=== PATIENT | female | born 1940 | race Caucasian/White ===

== ENCOUNTER 2020-02-21 21:41 | Emergency (ER) | payer MEDICARE, MEDICAID, SELFPAY ==
--- NOTE | 2020-02-21 21:57 | XR_ITS ---
WS: [id number] PORTABLE CHEST HISTORY: cp COMPARISON: 04/10/2016 LEFT subclavian dual lead cardiac pacer. Lungs are clear and well expanded. No pleural effusion or pneumothorax. Cardiac size: Mildly enlarged cardiac silhouette. Mediastinum/Aorta: Mild atherosclerosis aorta. Prior reverse RIGHT shoulder prosthesis. XR/XR chest 1V portable [id number] IMPRESSION: Mild cardiomegaly and calcified aorta. No acute cardiopulmonary disease.
--- NOTE | 2020-02-21 21:57 | ECG_ITS ---
[facility] ED Test Date: 2020-02-21 Pat Name: Margie Romano Department: Room: Gender: Female Gymnastics Coach: : 1940 Requested By: Kun Woodruff Order Number: [id number] Oriana MD: Marcelo Frank M.D. Measurements Intervals Van Rate: 82 P: W[place]: -1 QRS: 156 QRSD: 136 T: 10 QT: 429 QTc: 502 Interpretive Statements ELECTRONIC VENTRICULAR PACEMAKER ABNORMAL RHYTHM ECG Compared to ECG 04/10/2016 13:48:24 No significant changes Electronically Signed On 02-22-2020 7:25:53 CDT by Marcelo Frank M.D. [id number]
--- NOTE | 2020-02-21 22:20 | ED_ITS ---
HPI - Chest Pain General: Chief Complaint: Chest Pain Stated Complaint: CP Time Seen by Provider: 02/21/20 22:13 Source: patient Mode of arrival: ambulatory Limitations: no limitations History of Present Illness: HPI narrative: 79-year-old female who has a history of congestive heart failure states she has been having chest pain and shortness of breath over the last 2 days. States she had increased edema in her lower extremities as well. States the chest pain was mainly today and has been a burning pain in the center of her chest. She denies any worsening improving factors. Denies any fever. She denies any cough. MD complaint: chest pain Associated symptoms: Reports dyspnea; Deny abdominal pain, fever(s), nausea or vomiting Review of Systems Const: Denies: fever(s), chills, body aches or change in appetite Eyes: Denies: blurry vision or eye discomfort ENMT: Denies: throat pain or dental pain Card: Reports: chest pain Resp: Reports: dyspnea GI: Denies: abdominal pain, nausea, vomiting or diarrhea : Denies: dysuria Musc: Denies: neck pain or back pain Skin/Breast: Denies: rash Neuro: Denies: headache(s) Psych: Denies: depression Mainor/Lymph: Denies: easy bruising All/Imm: Denies: urticaria Physical Exam Const: COMMON NORMALS: no acute distress, patient oriented x3 and healthy appearing HENMT: COMMON NORMALS: normocephalic and atraumatic HEAD & SCALP: normocephalic and atraumatic Eye: COMMON NORMALS: Equal, round and reactive pupils present and EOMs intact bilaterally PUPIL: Yes Equal, round and reactive pupils present Neck/C-Spine: COMMON NORMALS: full ROM and supple Chest: COMMONS NORMALS: normal inspection of the chest and normal palpation of entire chest wall Resp: COMMON NORMALS: normal respiratory effort, No retractions, No use of accessory muscles and clear to auscultation bilaterally AUSCULTATION: clear to auscultation bilaterally Cardio: COMMON NORMALS: regular rate, regular rhythm and No murmurs present (Cardio) RATE: regular rate RHYTHM: regular rhythm GI: COMMON NORMALS: Normal to inspection, nondistended, normoactive bowel sounds present, Soft to palpation, non-tender and no masses PALPATION: Yes Soft to palpation Extremity: COMMON NORMALS: normal to inspection and full ROM NARRATIVE EXTREMITY EXAM: 2+ edema Neuro: COMMON NORMALS: patient oriented x3, moves all extremities and no focal motor deficits Psych: COMMON NORMALS: mental status grossly normal, Normal thought process present and cooperative THOUGHT PROCESS: Normal thought process present Skin: COMMON NORMALS: no rashes or lesions noted and no wounds GENERAL SKIN EXAM: no rashes or lesions noted Course Vital Signs: Vital signs: Vital Signs Temperature 98.4 F 02/21/20 22:36 Pulse Rate 89 02/22/20 01:09 Respiratory Rate 20 H 02/22/20 01:09 Blood Pressure 118/86 02/22/20 01:09 Pulse Oximetry 96 02/22/20 01:09 MDM - Chest Pain MDM Narrative: Medical decision making narrative: Patient presents with chest pain is atypical in nature. She has had no pain here in initial and repeat troponins are normal. EKGs are normal as well. She does have slight edema and given IV Lasix. She is to continue her Lasix at home as well. She has no shortness of breath here no signs of acute heart failure. She is to follow-up with her primary care doctor in 3 to 4 days return to ER if worsening. She understands and agrees to plan. Lab Data: Labs: Lab Results 02/21/20 02/21/20 02/21/20 Range/Units 22:26 22:26 22:26 WBC 11.3 H (4.0-10.0) 10^3/ uL RBC 4.96 (4.1-5.3) 10^6/u L Hgb 12.7 (11.5-15.3) g/dL Hct 41.2 (37.0-47.0) % MCV 83.1 (81-99) fL MCH 25.6 L (28.0-34.0) pg MCHC 30.8 (30.0-36.0) g/dL RDW 16.9 H (12.1-15.1) % Plt Count 333 (130-400) 10^3/c mm MPV 10.4 (7.4-10.4) fL Neut % (Auto) 55.2 % Lymph % (Auto) 34.1 % [place] % (Auto) 7.2 % Eos % (Auto) 2.7 % Baso % (Auto) 0.5 % Neut # (Auto) 6.3 (1.8-7.7) 10^3/u L Lymph # (Auto) 3.9 (0.8-4.8) 10^3/u L [place] # (Auto) 0.8 (0.2-0.9) 10^3/u L Eos # (Auto) 0.3 (0.0-0.8) 10^3/u L Baso # (Auto) 0.1 (0.0-0.1) 10^3/u L Nucleated RBC % (a uto) 0 % Nucleated RBCs # 0.0 /100WBC Sodium 138 (136-145) mmol/L Potassium 4.4 (3.5-5.1) mmol/L Chloride 94 L (98-107) mmol/L Carbon Dioxide 33 H (22-29) mmol/L Anion Gap 15.4 (5-19) BUN 22 (8-23) mg/dL Creatinine 1.2 H (0.5-0.9) mg/dL Glucose 135 H (65-115) mg/dL Calculated Osmolal ity 285 (285-295) mOsm/k g Calcium 8.8 (8.5-10.5) mg/dL Total Bilirubin 0.2 (0.15-1.2) mg/dL AST 17 (0-32) U/L ALT 12 (0-33) U/L Alkaline Phosphata se 77 (35-105) IU/L Troponin T Baselin e 13 H (0-10) ng/L Troponin T 120 Min andreafski (0-10) ng/L NT-Pro-B Natriuret Pep 1439 H (0-450) pg/mL Total Protein 6.8 (6.6-8.7) g/dL Albumin 4.2 (3.5-5.2) g/dL Globulin 2.6 (1.3-4.6) g/dL 02/21/20 Range/Units 23:58 WBC (4.0-10.0) 10^3/ uL RBC (4.1-5.3) 10^6/u L Hgb (11.5-15.3) g/dL Hct (37.0-47.0) % MCV (81-99) fL MCH (28.0-34.0) pg MCHC (30.0-36.0) g/dL RDW (12.1-15.1) % Plt Count (130-400) 10^3/c mm MPV (7.4-10.4) fL Neut % (Auto) % Lymph % (Auto) % [place] % (Auto) % Eos % (Auto) % Baso % (Auto) % Neut # (Auto) (1.8-7.7) 10^3/u L Lymph # (Auto) (0.8-4.8) 10^3/u L [place] # (Auto) (0.2-0.9) 10^3/u L Eos # (Auto) (0.0-0.8) 10^3/u L Baso # (Auto) (0.0-0.1) 10^3/u L Nucleated RBC % (a uto) % Nucleated RBCs # /100WBC Sodium (136-145) mmol/L Potassium (3.5-5.1) mmol/L Chloride (98-107) mmol/L Carbon Dioxide (22-29) mmol/L Anion Gap (5-19) BUN (8-23) mg/dL Creatinine (0.5-0.9) mg/dL Glucose (65-115) mg/dL Calculated Osmolal ity (285-295) mOsm/k g Calcium (8.5-10.5) mg/dL Total Bilirubin (0.15-1.2) mg/dL AST (0-32) U/L ALT (0-33) U/L Alkaline Phosphata se (35-105) IU/L Troponin T Baselin e (0-10) ng/L Troponin T 120 Min andreafski 12.47 H (0-10) ng/L NT-Pro-B Natriuret Pep (0-450) pg/mL Total Protein (6.6-8.7) g/dL Albumin (3.5-5.2) g/dL Globulin (1.3-4.6) g/dL Imaging Data^: CXR: Attestation: I personally reviewed and interpreted this imaging study as follows: My impression: no acute abnormality EKG Data^: EKG 1: Attestation: I personally reviewed and interpreted this EKG as follows: EKG interpretation date: 02/21/20 EKG interpretation time: 22:26 Interpretation: paced rhythm hr [address] or t wave abnormalities qrs 136 Discharge Plan Discharge Patient Disposition: Home, Self-Care Clinical Impression: Leg edema Chest pain Qualifiers: Chest pain type: unspecified Qualified Code(s): R07.9 - Chest pain, unspecified Condition: Stable Prescriptions: No Action celecoxib 200 mg Capsule 200 mg PO DAILY RF: 0 Lasix 40 mg Tablet 40 mg PO DAILY RF: 0 methocarbamol 500 mg Tablet 500 mg PO QID RF: 0 metformin 500 mg Tablet 500 mg PO BID RF: 0 fentanyl 50 mcg/hr Patch 72 Hour 1 patch TRANSDERMAL Q72H RF: 0 trazodone 50 mg tablet 50 mg PO BEDTIME RF: 0 metoprolol succinate 50 mg Tablet Extended Release 24 Hr 75 mg PO DAILY RF: 0 glipizide 10 mg Tablet 10 mg PO BID RF: 0 Effexor XR 150 mg Capsule,Extended Release 24hr 150 mg PO DAILY RF: 0 potassium chloride 10 mEq Tablet Extended Release 10 meq PO DAILY RF: 0 allopurinol 100 mg Tablet 100 mg PO DAILY RF: 0 oxycodone 15 mg Tablet 15 mg PO Q8H PRN (Reason: Pain) RF: 0 Synthroid 88 mcg Tablet 88 mcg PO DAILY RF: 0 Xanax 0.5 mg Tablet 0.5 mg PO DAILY PRN (Reason: Anxiety) RF: 0 gabapentin 300 mg Capsule 300 mg PO DAILY RF: 0 Zetia 10 mg Tablet RF: 0 Lantus Solostar U-100 Insulin 100 unit/mL (3 mL) Insulin Pen 20 unit SUBCUT QPM RF: 0 Voltaren 1 % Gel 2 g TOPICAL QID RF: 0 omeprazole 20 mg Tablet,Delayed Release (Dr/Ec) 20 mg PO BID RF: 0 Pradaxa 150 mg Capsule 150 mg PO BID RF: 0 melatonin 10 mg Capsule 10 mg PO DAILY RF: 0 Discharge Orders: Discharge Order (Routine); Ordered 02/22/20 Ordered By: Kun Woodruff Referrals: Betty Cook DO [Primary Care Provider] - Discharge Diet: Advance as tolerated Discharge Activity: Resume usual activity Patient Instructions: Chest Pain (ED), Leg Edema (ED) Discharge Date/Time: 02/22/20 01:10 Coding Level of Care Code ED Manager Community Relations for Chg Fwd Exam Comprehensive
[2020-02-21 22:36] VITALS: BP 132/78; PULSE 86; RESP 16; TEMP 36.9; O2SAT 95; BMI 35.5
[2020-02-21 22:44] VITALS: BP 139/78; PULSE 84; RESP 17; O2SAT 95
[2020-02-21 22:47] LABS: Basophils # 0.1 10^3/uL (0.0-0.1); Basophils % 0.5 %; Eosinophils # 0.3 10^3/uL (0.0-0.8); Eosinophils % 2.7 %; Hematocrit 41.2 % (37.0-47.0); Hemoglobin 12.7 g/dL (11.5-15.3); Lymphocytes # 3.9 10^3/uL (0.8-4.8); Lymphocytes % 34.1 %; Mean Corpuscular HGB Conc 30.8 g/dL (30.0-36.0); Mean Corpuscular Hemoglobin 25.6 pg (28.0-34.0); Mean Corpuscular Volume 83.1 fL (81-99); Mean Platelet Volume 10.4 fL (7.4-10.4); Monocytes # 0.8 10^3/uL (0.2-0.9); Monocytes % 7.2 %; Neutrophils # 6.3 10^3/uL (1.8-7.7); Neutrophils % 55.2 %; Nucleated Red Blood Cells % 0 %; Platelet Count 333 10^3/cmm (130-400); Red Blood Count 4.96 10^6/uL (4.1-5.3); Red Cell Distribution Width 16.9 % (12.1-15.1); White Blood Count 11.3 10^3/uL (4.0-10.0)
[2020-02-21 23:00] VITALS: BP 122/80; PULSE 85; RESP 20; O2SAT 97
[2020-02-21 23:06] LABS: Troponin(5th) Baseline 13 ng/L (0-10)
[2020-02-21 23:10] LABS: Alanine Aminotransferase 12 U/L (0-33); Albumin Level 4.2 g/dL (3.5-5.2); Alkaline Phosphatase 77 IU/L (35-105); Anion Gap 15.4 (5-19); Aspartate Amino Transferase 17 U/L (0-32); Blood Urea Nitrogen 22 mg/dL (8-23); Calcium 8.8 mg/dL (8.5-10.5); Carbon Dioxide 33 mmol/L (22-29); Chloride 94 mmol/L (98-107); Globulin 2.6 g/dL (1.3-4.6); Glucose 135 mg/dL (65-115); NT Pro B Type Natriuretic Pept 1439 pg/mL (0-450); Osmolality Calculated 285 mOsm/kg (285-295); Potassium 4.4 mmol/L (3.5-5.1); Sodium 138 mmol/L (136-145); Total Bilirubin 0.2 mg/dL (0.15-1.2); Total Protein 6.8 g/dL (6.6-8.7)
[2020-02-21 23:52] VITALS: BP 120/69; PULSE 83; RESP 17; O2SAT 96
[2020-02-22] MEDS: FUROsemide 10 mg/mL SDV 4mL 40 MG IVP (00:29)
[2020-02-22 00:31] VITALS: BP 119/75; PULSE 88; RESP 19; O2SAT 96
[2020-02-22 00:45] LABS: Troponin 5 2HR 12.47 ng/L (0-10)
[2020-02-22 01:09] VITALS: BP 118/86; PULSE 89; RESP 20; O2SAT 96
[2020-02-22 01:32] LABS: Troponin 5 2HR Delta -0.53 ABS# (0-10)
== END 2020-02-22 01:10 | disposition home or self-care (01) ==
PROVIDERS: Emergency Provider Emergency Medicine; PCP Family Medicine
DX: R07.9 Chest pain, unspecified (principal); R60.0 Localized edema; Z79.4 Long term (current) use of insulin
CPT/HCPCS: 12345; 71045; 80053; 83880; 84484; 85025; 93005; 96374; 99283; 99284; J1940

== ENCOUNTER → 2020-08-29 09:08 | Outpatient (BNVA) | payer MEDICARE, MEDICAID, SELFPAY | PROVIDERS: PCP Family Medicine; Visit Provider Internal Medicine | DX: E03.9 Hypothyroidism, unspecified (principal); E11.22 Type 2 diabetes mellitus with diabetic chronic kidney disease; N18.30 Chronic kidney disease, stage 3 unspecified; E11.42 Type 2 diabetes mellitus with diabetic polyneuropathy; Z79.4 Long term (current) use of insulin; I48.91 Unspecified atrial fibrillation; I50.9 Heart failure, unspecified; Z91.89 Other specified personal risk factors, not elsewhere classified; I13.0 Hypertensive heart and chronic kidney disease with heart failure and stage 1 through stage 4 chronic kidney disease, or unspecified chronic kidney disease; M19.90 Unspecified osteoarthritis, unspecified site; M96.1 Postlaminectomy syndrome, not elsewhere classified; M10.9 Gout, unspecified; Z11.59 Encounter for screening for other viral diseases; Z87.891 Personal history of nicotine dependence; I10 Essential (primary) hypertension; E11.9 Type 2 diabetes mellitus without complications; M19.042 Primary osteoarthritis, left hand; M19.041 Primary osteoarthritis, right hand | CPT/HCPCS: 36415; 73120; 83036; 84439; 84443; 99203; 99205 ==

== ENCOUNTER 2020-08-29 12:07 | Outpatient (CLI) | payer MEDICARE, MEDICAID, SELFPAY ==
--- NOTE | 2020-08-29 12:20 | XR_ITS ---
WS: [id number] Left hand, AP and lateral, 08/29/2020 Clinical Data: I10 - Essential (primary) hypertension Comparison: None. Findings: No fractures or dislocations are seen. The soft tissues are unremarkable. Degenerative changes of the second through fifth PIP and DIP joints can be seen. There is osteoarthritic change of the left firs t MP joint and the left first IP joint. There is osteoarthritic change at the base of the left first metacarpal. No periarticular demineralization or calcifications are seen. 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
--- NOTE | 2020-08-29 12:20 | XR_ITS ---
WS: [id number] RIGHT HAND: 2 VIEW(S) TECHNIQUE: PA and lateral. HISTORY: I10 - Essential (primary) hypertension COMPARISON: None available. Row pattern of interphalangeal joint space narrowing involving the proximal and distal joint spaces. Loss of joint space with erosions. Erosive and slightly productive changes at the IP joints. No defin ite periostitis. Mild joint space narrowing and osteoarthritis at the STT joint and the first CMC joint. XR/XR hand RT 2V [id number] IMPRESSION: 1. Interphalangeal joint space disease. Differential includes erosive arthriti s and psoriatic arthritis. 2. Additional osteoarthritis involving the first CMC and STT joints.
[2020-08-29 13:05] LABS: Estmated Average Glucose 203; Hemoglobin A1C 8.7 % (4.0-6.0)
[2020-08-29 13:47] LABS: Free T4 Free Thyroxine 1.15 ng/dL (0.82-1.77); Thyroid Stimulating Hormone 2.58 uIU/mL (0.27-4.20)
== END 2020-08-29 12:08 | disposition home or self-care (01) ==
PROVIDERS: PCP Family Medicine; Visit Provider Internal Medicine
DX: I10 Essential (primary) hypertension (principal); E11.9 Type 2 diabetes mellitus without complications; E03.9 Hypothyroidism, unspecified; M19.042 Primary osteoarthritis, left hand; M19.041 Primary osteoarthritis, right hand
CPT/HCPCS: 36415; 73120; 83036; 84439; 84443

== ENCOUNTER → 2020-09-19 09:19 | Outpatient (BNVA) | payer MEDICARE, MEDICAID, SELFPAY | PROVIDERS: PCP Family Medicine; Visit Provider Anesthesiology Pain Medicine | DX: M47.816 Spondylosis without myelopathy or radiculopathy, lumbar region (principal); M51.36 Other intervertebral disc degeneration, lumbar region; M96.1 Postlaminectomy syndrome, not elsewhere classified; Z79.891 Long term (current) use of opiate analgesic; I70.0 Atherosclerosis of aorta; M53.2X6 Spinal instabilities, lumbar region; M46.26 Osteomyelitis of vertebra, lumbar region | CPT/HCPCS: 72114; 99205 ==

== ENCOUNTER 2020-09-19 10:32 | Outpatient (CLI) | payer MEDICARE, MEDICAID, SELFPAY ==
--- NOTE | 2020-09-19 10:41 | XR_ITS ---
WS: [id number] LUMBAR SPINE: 5 VIEWS TECHNIQUE: AP, lateral, and L5-S1 spot. Lateral views in neutral, flexion and extension. HISTORY: M47.816 - Spondylosis without myelopathy or radiculopathy, lumbar region COMPARISON: 11/21/2015 Mild reverse S-shaped curvature lower thoracic and lumbar spine. Osteopenia. Prior fusion posteriorly at L4-5. Interbody disc spacer at L4-5. Appearance of the hardware is unchanged. No fractures. L3 anterolisthesis on neutral by 2 mm. Anterolisthesis increases to 5.8 mm during flexion and returns to 2.6 mm during extension. This is a new finding since 11/21/2015. Extensive atherosclerosis throughout the aorta. Prior cholecystectomy. XR/XR lumbar spine min 4V [id number] IMPRESSION: 1. Prior posterior lumbar fusion at L4-5 with interbody spacer. No interval ch davin. 2. Mild flexion instability of L3. 3. Advanced atherosclerosis aorta.
== END 2020-09-19 10:33 | disposition home or self-care (01) ==
LOC: RADWPI 10:37
PROVIDERS: PCP Family Medicine; Visit Provider Anesthesiology Pain Medicine
DX: M47.816 Spondylosis without myelopathy or radiculopathy, lumbar region (principal); I70.0 Atherosclerosis of aorta; M53.2X6 Spinal instabilities, lumbar region; M43.26 Fusion of spine, lumbar region
CPT/HCPCS: 72114

== ENCOUNTER → 2020-10-31 10:27 | Outpatient (BNVA) | payer MEDICARE, MEDICAID, SELFPAY | PROVIDERS: PCP Family Medicine; Visit Provider Anesthesiology Pain Medicine | DX: G89.29 Other chronic pain (principal); M47.816 Spondylosis without myelopathy or radiculopathy, lumbar region; M96.1 Postlaminectomy syndrome, not elsewhere classified; M51.36 Other intervertebral disc degeneration, lumbar region | CPT/HCPCS: 99214 ==

== ENCOUNTER 2021-03-21 05:31 | Emergency (ER) | payer MEDICARE, MEDICAID, SELFPAY ==
[2021-03-21 06:15] VITALS: BP 124/82; PULSE 89; RESP 16; TEMP 36.7; O2SAT 94; BMI 38.0
[2021-03-21 06:18] VITALS: RESP 15
--- NOTE | 2021-03-21 07:22 | ED_ITS ---
HPI - Back Pain/Injury General: Chief Complaint: Back Pain/Injury Stated Complaint: back pain Time Seen by Provider: 03/21/21 06:58 Source: patient and family (daughter) Mode of arrival: wheelchair Limitations: no limitations History of Present Illness: HPI Narrative: Patient is a nice 80-year-old female who presents to ED today along with her daughter for complaints of back pain and lower extremity leg pain/weakness that has been present over the past several weeks. Patient tells me this morning after getting out of bed she states she fell to the ground and was not able to get up on her own. She was able to reach a phone and called her daughter who then called an ambulance. Patient tells me she is not sure if it was her lower back pain that caused her to fall or her leg weakness-also thinks that her knees buckled (hx of bilateral knee replacements). Daughter states her legs have gotten progressively weaker over the past few weeks. She has had an additional 2 falls over this time period as well. Patient states after her last fall she did fall onto her bottom and was worried she could have fractured her back. Patient states the pain in her legs is localized to the medial aspect of her thighs and stays above the knee. Patient has seen her primary care as well as Dr. Saldana for back pain previously. Dr. Saldana had recommended a nerve ablation however patient's insurance was not willing to cover this procedure. Daughter states she has been on countless different medications including morphine for her pain all without relief. She currently is on fentanyl patches and oral oxycodone. Patient is not having any episodes of urine retention or bowel incontinence. She is normally able to ambulate around her home with the help of a walker or a cane however daughter states this is getting progressively more difficult. She overall is extremely de-conditioned. She tells me she cannot participate in physical therapy because she is not able to even bend over without excruciating pain. MD elicited complaint: back pain Pertinent past history: prior back pain Onset (ago): week(s) Timing: constant Severity: severe Similar Symptoms Previously: Yes Location: lumbar spine and sacrum Radiation: left upper leg and right upper leg Exacerbating factors: movement, walking and other (bending forward ) Relieving factors: none Associated symptoms: Reports difficulty walking (secondary to pain/weakness); Deny abdominal pain, chills, dysuria, fatigue or fever(s) Work related injury: No Review of Systems Const: Denies: fever(s), chills, body aches, fatigue or malaise Eyes: Denies: change in vision or blurry vision Card: Denies: chest pain Resp: Denies: dyspnea GI: Denies: abdominal pain : Denies: flank pain or dysuria Musc: Reports: back pain and extremity pain; Denies: neck pain, extremity swelling, joint pain, joint swelling, joint redness or joint warmth Skin/Breast: Denies: rash Neuro: Reports: weakness in extremities (bilateral LEs), difficulty walking (secondary to pain/weakness) and frequent falls; Denies: headache(s), numbness in extremities, sensory changes, lack of coordination or dizziness PFSH ED PFSH: Medical History Atrial fibrillation Cardiac resynchronization therapy pacemaker (INCISING MACHINE OPERATOR-P) in place Congestive heart failure Diabetes Hyperlipidemia Hypertension Hypothyroidism Non-ischemic cardiomyopathy Sick sinus syndrome Surgical History H/O shoulder replacement S/P AV bro[place]nn ablation Family History Mother Lung disease Social History Smoking and tobacco status: former smoker Alcohol intake: never Lives independently: Yes Household members: spouse History of recent travel: No Physical Exam Const: COMMON NORMALS: no acute distress, patient oriented x3, no limitations and alert NUTRITIONAL APPEARANCE: obese ORIENTATION/CONSCIOUSNESS: Yes awake, Yes oriented to person, Yes oriented to place and Yes oriented to time HENMT: COMMON NORMALS: normocephalic and atraumatic HEAD & SCALP: normocephalic and atraumatic Resp: COMMON NORMALS: normal respiratory effort : COMMON NORMALS: Yes no CVA tenderness BLADDER/KIDNEY EXAM: Yes no CVA tenderness Back/Pelvis: COMMON NORMALS: no CVA tenderness THORACIC SPINE/UPPER BACK: Yes normal to inspection and No paraspinal muscle tenderness LUMBAR SPINE/LOWER BACK: Yes lumbar spinal tenderness (throughout L spine), No paraspinal muscle tenderness, Yes straight leg raise positive right, Yes straight leg raise positive left and Yes bend over test abnormal PELVIS: Yes buttocks normal SACROILIAC JOINTS: Yes SI joint(s) abnormal SI joint details: tender to palpation SACRUM: tenderness COCCYX: no tenderness Extremity: NARRATIVE EXTREMITY EXAM: bilateral LE edema/chronic; NV intact GENERAL: Yes normal exam except as noted Neuro: BASSAM COMA SCALE: document GCS findings Bassam coma scale eye opening: Spontaneous Bassam coma scale verbal response: Orientated Randolph coma scale motor response: Obey commands Bassam coma scale total score: 15 COMMON NORMALS: patient oriented x3 SENSORIUM/ORIENTATION: Yes alert, Yes oriented to person, Yes oriented to place and Yes oriented to time GAIT: Yes Unable to assess gait SENSORY EXAM: Yes other (normal sensory LEs) DEEP TENDON REFLEXES: Right patellar reflex intensity grade: 2+ and Left patellar reflex intensity grade: 2+ Skin: COMMON NORMALS: no rashes or lesions noted GENERAL SKIN EXAM: no rashes or lesions noted Course Vital Signs: Vital signs: Vital Signs Temperature 98.1 F 03/21/21 06:15 Pulse Rate 89 03/21/21 06:15 Respiratory Rate 15 03/21/21 08:18 Blood Pressure 124/82 03/21/21 06:15 Pulse Oximetry 94 03/21/21 06:15 MDM - Back Pain/Injury MDM Narrative: Medical decision making narrative: Patient CT lumbar and bony pelvis are negative for acute pathology. She does have broad-based disc bulges throughout her lumbar spine. Patient is requesting a wheelchair as she does not feel she can ambulate safely with her walker any longer. HOME will be contacted and hopefully we can provide one prior to discharge. Recommend follow-up with Dr. Saldana to see if maybe they can resubmit a claim for some type of intervention for her back including the nerve ablation that was suggested. She was told she is not a surgical candidate. Imaging Data^: CT lumbar: Radiologist's impression: [address] [address] [address] Scan Report Signed Patient: Yojana Romano Unit #: [id number] : 1940 Age/Sex: 80 / F ADM Date: 03/21/21 Loc: ER Room/Bed: Attending Dr: Ordering Provider/Ordering MD: Lenora Henriquez Date of Service: 03/21/21 Procedure(s): CT lumbar spine wo con* [id number] Accession Number(s): [id number] Report Number: [id number] PROCEDURE INFORMATION: Exam: CT Lumbar Spine Without Contrast Exam date and time: 03/21/2021 7:21 AM Age: 80 years old Clinical indication: Injury or trauma; Fall; Blunt trauma (contusions or hematomas); Prior surgery; Surgery date: 6+ months; Additional info: Back pain, leg weakness, falls TECHNIQUE: Imaging protocol: Computed tomography images of the lumbar spine without contrast. Total images: 341 Radiation optimization: All CT scans at this facility use at least one of these dose optimization techniques: automated exposure control; mA and/or kV adjustment per patient size (includes targeted exams where dose is matched to clinical indication); or iterative reconstruction. COMPARISON: [place] [id number] 11/21/2015 8:48 AM RADIATION DOSE METRICS: Total DLP (mGy-cm): 2134.85 FINDINGS: Vertebrae: L4-L5 Posterior spinal fusion is noted. Rods and pedicle screws are in place and there is no evidence of hardware failure. L3-L4 Degenerative spondylolisthesis (grade 1) is seen with disc space height loss and degenerative changes in the facet joints. Discs/Spinal canal/Neural foramina: L1-L2 Degenerative disc disease with disc space narrowing and osteophyte formation. L1-4 Broad-based posterior disc bulge. L5-S1 Broad-based posterior disc bulge. Gallbladder and bile ducts: Prior cholecystectomy noted. Kidneys and ureters: Nonobstructive right sided kidney stone measures 2 mm. Vasculature: Atherosclerosis is evident. Soft tissues: Unremarkable. CT/CT lumbar spine wo con* [id number] IMPRESSION: 1. L4-L5 Posterior spinal fusion is noted. Rods and pedicle screws are in place and there is no evidence of hardware failure. 2. Degenerative changes as described above but no acute pathology detected. Radiation Dose CTDIVOL = (mGy): DLP = 2134.85 (mGy-cm) Dictated By: Frandy Barber MD Signed By: Frandy Barber MD Signed Date/Time: 03/21/2157 DD/ CT bony pelvis: Radiologist's impression: [id number] [address] [address] Scan Report Signed Patient: Yojana Romano Unit #: [id number] : 1940 Age/Sex: 80 / F ADM Date: 03/21/21 Loc: ER Room/Bed: Attending Dr: Ordering Provider/Ordering MD: Lenora Henriquez Date of Service: 03/21/21 Procedure(s): CT bony pelvis 00753 Accession Number(s): [id number] Report Number: [id number] PROCEDURE INFORMATION: Exam: CT Pelvis Without Contrast; Skeletal Exam date and time: 03/21/2021 7:21 AM Age: 80 years old Clinical indication: Injury or trauma; Fall; Blunt trauma (contusions or hematomas); Bilateral; Pelvic region; Additional info: Sacral pain, leg weakness, falls TECHNIQUE: Imaging protocol: Computed tomography images of the pelvis without contrast. Exam focused on the skeletal structures. Total images: 472 Radiation optimization: All CT scans at this facility use at least one of these dose optimization techniques: automated exposure control; mA and/or kV adjustment per patient size (includes targeted exams where dose is matched to clinical indication); or iterative reconstruction. COMPARISON: [place] [id number] 11/21/2015 8:48 AM RADIATION DOSE METRICS: Total DLP (mGy-cm): 606.99 FINDINGS: Reproductive: Prior hysterectomy noted. Vasculature: Incidental phleboliths noted. Moderate atherosclerotic disease is evident. Bones/joints: L4-L5 Posterior spinal fusion is noted. Rods and pedicle screws are in place and there is no evidence of hardware failure. L5-S1 Broad-based posterior disc bulge. No acute fracture nor subluxation. No osseous erosion nor periosteal reaction. Soft tissues: Unremarkable. CT/CT bony pelvis [id number] IMPRESSION: No acute osseous pathology. Radiation Dose CTDIVOL = (mGy): DLP = 606.99 (mGy-cm) Dictated By: Frandy Barber MD Signed By: Frandy Barber MD Signed Date/Time: 03/21/21958 DD/ 7 Discharge Plan Discharge Patient Disposition: Home Clinical Impression: Lumbar radiculopathy, H/O spinal fusion, Bilateral leg weakness Condition: Stable Prescriptions: No Action sitagliptin 50 mg tablet 50 mg PO DAILY RF: 0 glimepiride 1 mg tablet 1 mg PO DAILY RF: 0 buspirone 7.5 mg tablet 7.5 mg PO BID RF: 0 Lasix 40 mg tablet 40 mg PO BID Qty: 180 RF: 3 Lanjane Solostar U-100 Insulin 100 unit/mL (3 mL) insulin pen 22 unit SUBCUT QPM 90 Days Qty: 19.8 RF: 3 (DME) FreeStyle Sanjay 14 Day Sensor Kit See Rx Instructions .Route Qty: 3 RF: 3 celecoxib 200 mg Capsule 200 mg PO DAILY RF: 0 trazodone 50 mg tablet 50 mg PO BEDTIME RF: 0 metoprolol succinate 50 mg Tablet Extended Release 24 Hr 75 mg PO DAILY RF: 0 Effexor XR 150 mg Capsule,Extended Release 24hr 150 mg PO DAILY RF: 0 allopurinol 100 mg Tablet 100 mg PO DAILY RF: 0 oxycodone 15 mg Tablet 15 mg PO Q8H PRN (Reason: Pain) RF: 0 Synthroid 88 mcg Tablet 88 mcg PO DAILY RF: 0 Xanax 0.5 mg Tablet 0.5 mg PO DAILY PRN (Reason: Anxiety) RF: 0 omeprazole 20 mg Tablet,Delayed Release (Dr/Ec) 20 mg PO BID RF: 0 Pradaxa 150 mg Capsule 150 mg PO BID RF: 0 melatonin 10 mg Capsule 10 mg PO DAILY RF: 0 potassium chloride 10 mEq tablet extended release 10 meq PO BID RF: 0 gabapentin 300 mg capsule 900 mg PO DAILY RF: 0 Discharge Orders: Discharge ED (Routine); Ordered 03/21/21 Ordered By: Lenora Henriquez Other Ambulatory Orders: DME: Wheelchair (Order) Location: None Selected Ordered By: Lenora Henriquez Referrals: Betty Cook DO [Primary Care Provider] - Coding Level of Care Code ED Agricultural Specialist for Chg Fwd Exam Comprehensive
[2021-03-21 08:18] VITALS: RESP 15
[2021-03-21] MEDS: oxyCODONE-APAP 5-325 mg Tablet 1 TAB PO (08:43)
[2021-03-21 10:00] VITALS: RESP 18
== END 2021-03-21 11:58 | disposition home or self-care (01) ==
PROVIDERS: Emergency Provider Physician Assistant; PCP Family Medicine
DX: M43.16 Spondylolisthesis, lumbar region (principal); M54.16 Radiculopathy, lumbar region; M51.17 Intervertebral disc disorders with radiculopathy, lumbosacral region; I48.91 Unspecified atrial fibrillation; I11.0 Hypertensive heart disease with heart failure; I50.9 Heart failure, unspecified; E78.5 Hyperlipidemia, unspecified; E03.9 Hypothyroidism, unspecified; I51.7 Cardiomegaly; Z87.891 Personal history of nicotine dependence; Z98.1 Arthrodesis status
CPT/HCPCS: 72131; 72192; 99283

== ENCOUNTER → 2021-04-13 14:00 | Outpatient (BNVA) | payer MEDICARE, MEDICAID, SELFPAY | PROVIDERS: PCP Family Medicine; Visit Provider Anesthesiology Pain Medicine | DX: Z01.812 Encounter for preprocedural laboratory examination (principal); E11.9 Type 2 diabetes mellitus without complications; M54.16 Radiculopathy, lumbar region; M96.1 Postlaminectomy syndrome, not elsewhere classified; Z91.041 Radiographic dye allergy status | CPT/HCPCS: 64483; 64484; 82962; J1100; J1200; J3490 ==

== ENCOUNTER → 2021-04-29 11:06 | Outpatient (BNVA) | payer MEDICARE, MEDICAID, SELFPAY | PROVIDERS: PCP Family Medicine; Visit Provider Anesthesiology Pain Medicine | DX: M47.816 Spondylosis without myelopathy or radiculopathy, lumbar region (principal); M51.36 Other intervertebral disc degeneration, lumbar region; M96.1 Postlaminectomy syndrome, not elsewhere classified; M79.642 Pain in left hand; M79.604 Pain in right leg; M79.605 Pain in left leg; Z79.891 Long term (current) use of opiate analgesic | CPT/HCPCS: 99214 ==

== ENCOUNTER 2021-05-04 16:00 | Outpatient (CLI) | payer MEDICARE, MEDICAID, SELFPAY ==
[2021-05-04 16:43] LABS: Estmated Average Glucose 200; Hemoglobin A1C 8.6 % (4.0-6.0)
[2021-05-04 17:17] LABS: Free T4 Free Thyroxine 1.23 ng/dL (0.82-1.77)
== END 2021-05-04 16:01 | disposition home or self-care (01) ==
LOC: LAB 16:09
PROVIDERS: PCP Family Medicine; Visit Provider Internal Medicine
DX: E11.42 Type 2 diabetes mellitus with diabetic polyneuropathy (principal); E89.0 Postprocedural hypothyroidism; Z79.4 Long term (current) use of insulin
CPT/HCPCS: 36415; 83036; 84439; 84443; 99214

== ENCOUNTER 2021-08-05 12:08 | Outpatient (CLI) | payer MEDICARE, MEDICAID, SELFPAY ==
--- NOTE | 2021-08-05 12:45 | USCV_ITS ---
Yojana Romano Age: 80 Gender: F : 1940 Exam Date: 08/05/2021 12:47 Ordering Phys: Ze Saavedra M.D ([email or web address]) Technologist: [place] [facility] [place]: CHF BP: 130 / 76 HR: 84 Rhythm: Sinus Technical Quality: Adequate MEASUREMENTS (Male / Female) Normal Values 2D ECHO LV Diastolic Diameter PLAX 3.4 cm 4.2 - 5.9 / 3.9 - 5.3 cm LV Systolic Diameter PLAX 3.2 cm IVS Diastolic Thickness 1.0 cm 0.6 - 1.0 / 0.6 - 0.9 cm IVS Systolic Thickness 1.3 cm LVPW Diastolic Thickness 0.7 cm 0.6 - 1.0 / 0.6 - 0.9 cm LVPW Systolic Thickness 1.3 cm LVOT Diameter 2.1 cm LV Ejection Fraction 2D Teich 4.1 % LV Ejection Fraction MOD 2C 59.8 % LV Ejection Fraction 2C AL 60.8 % LA Diameter 3.8 cm LA Width 4.0 cm LA Height 5.7 cm RA Width 5.3 cm RA Height 3.8 cm Aorta at Sinotubular Diameter 2.5 cm M-MODE Aortic Annulus Diameter 2.6 cm LA Ao Ratio MM 1.4 DOPPLER AV Peak Velocity 109.0 cm/s LVOT Peak Velocity 68.0 cm/s AV Area Cont Eq vti 1.8 cm squared AV Area Cont Eq pk 2.1 cm squared MV Area PHT 5.5 cm squared Mitral E to A Ratio 3.3 MV E' Velocity 51.0 cm/s Mitral E to MV E' Ratio 9.1 Mitral E to LV E' Lateral Ratio 8.8 Mitral E to LV E' Septal Ratio 9.5 TR Peak Velocity 302.5 cm/s TR Peak Gradient 36.6 mmHg TV Peak E Velocity 105.0 cm/s Right Atrial Pressure 3.0 mmHg Pulmonary Artery Systolic Pressu 39.6 mmHg FINDINGS Left Ventricle Normal left ventricular cavity size. Moderately decreased left ventricular systolic function. Left ventricular ejection fraction is estimated at 40 %. Global left ventricular hypokinesis. In the presence of atrial fibrillation diastolic function cannot be assessed accurately. Right Ventricle Normal right ventricular size. Normal right ventricular systolic function. Catheter/pacemaker wire visualized in the right ventricle. Mild pulmonary hypertension, RVSP 39.6 mmHg. Right Atrium Normal right atrial size. Catheter/pacemaker wire in the right atrial cavity. Left Atrium Moderately increased left atrial size. Mitral Valve Moderately thickened mitral valve. No mitral valve stenosis. Moderate mitral valve regurgitation. Aortic Valve Moderate aortic valve calcification. Mild aortic valve stenosis, mean gradient 2 mmHg, WANDA 1.8 cm squared. Trace aortic valve regurgitation. Tricuspid Valve Structurally normal tricuspid valve without significant stenosis or regurgitation. Pulmonic Valve Structurally normal pulmonic valve without significant stenosis. There is no pulmonic regurgitation. Pericardium Normal pericardium without effusion. Aorta Normal ascending aorta dimension. CONCLUSIONS 1-Normal left ventricular cavity size. Moderately decreased left ventricular systolic function. Left ventricular ejection fraction is estimated at 40 %. Global left ventricular hypokinesis. In the presence of atrial fibrillation diastolic function cannot be assessed accurately. 2-Normal right ventricular size. Normal right ventricular systolic function. Catheter/pacemaker wire visualized in the right ventricle. 3-Normal right atrial size. Catheter/pacemaker wire in the right atrial cavity. 4-Moderately thickened mitral valve. No mitral valve stenosis. Moderate mitral valve regurgitation. 5-Moderate aortic valve calcification. Mild aortic valve stenosis, mean gradient 2 mmHg, WANDA 1.8 cm squared. Trace aortic valve regurgitation. 6-Structurally normal tricuspid valve without significant stenosis or regurgitation. Pulmonary artery systolic pressure is normal. 7-Mild pulmonary hypertension, RVSP 39.6 mmHg. 8-There is no pericardial effusion. 9-When compared to the prior echocardiogram dated April 20, 2016 there is worsening of mitral valve regurgitation from mild to moderate. Lucinda Jerry MD (Electronically Signed) Final Date: 05 August 2021 17:58 S
== END 2021-08-05 12:09 | disposition home or self-care (01) ==
LOC: RAD 12:11
PROVIDERS: PCP Family Medicine; Visit Provider Internal Medicine
DX: I48.91 Unspecified atrial fibrillation (principal); I50.9 Heart failure, unspecified; Z95.0 Presence of cardiac pacemaker; I08.0 Rheumatic disorders of both mitral and aortic valves; I27.20 Pulmonary hypertension, unspecified
CPT/HCPCS: 93306

== ENCOUNTER → 2021-09-04 10:25 | Outpatient (BNVA) | payer MEDICARE, MEDICAID, SELFPAY | PROVIDERS: PCP Family Medicine; Visit Provider Internal Medicine | DX: E11.42 Type 2 diabetes mellitus with diabetic polyneuropathy (principal); E11.22 Type 2 diabetes mellitus with diabetic chronic kidney disease; N18.30 Chronic kidney disease, stage 3 unspecified; E89.0 Postprocedural hypothyroidism; E83.51 Hypocalcemia; Z79.4 Long term (current) use of insulin; Z87.891 Personal history of nicotine dependence | CPT/HCPCS: 36415; 80053; 83036; 84439; 84443; 99214; 99215 ==

== ENCOUNTER 2021-09-04 11:35 | Outpatient (CLI) | payer MEDICARE, MEDICAID, SELFPAY ==
[2021-09-04 12:51] LABS: Estmated Average Glucose 255; Hemoglobin A1C 10.5 % (4.0-6.0)
[2021-09-04 12:56] LABS: Alanine Aminotransferase 12 U/L (0-33); Alkaline Phosphatase 156 IU/L (35-105); Anion Gap 15.1 (5-19); Aspartate Amino Transferase 14 U/L (0-32); Blood Urea Nitrogen 13 mg/dL (8-23); Calcium 7.9 mg/dL (8.5-10.5); Carbon Dioxide 29 mmol/L (22-29); Chloride 96 mmol/L (98-107); Free T4 Free Thyroxine 0.96 ng/dL (0.82-1.77); Globulin 2.7 g/dL (1.3-4.6); Glucose 247 mg/dL (65-115); Osmolality Calculated 290 mOsm/kg (285-295); Potassium 4.1 mmol/L (3.5-5.1); Sodium 136 mmol/L (136-145); Total Bilirubin 0.3 mg/dL (0.15-1.2); Total Protein 6.7 g/dL (6.6-8.7)
== END 2021-09-04 11:36 | disposition home or self-care (01) ==
LOC: LAB 11:50
PROVIDERS: PCP Family Medicine; Visit Provider Internal Medicine
DX: E11.22 Type 2 diabetes mellitus with diabetic chronic kidney disease (principal); E89.0 Postprocedural hypothyroidism; N18.30 Chronic kidney disease, stage 3 unspecified
CPT/HCPCS: 36415; 80053; 83036; 84439; 84443

== ENCOUNTER → 2021-10-09 10:30 | Outpatient (BNVA) | payer MEDICARE, MEDICAID, SELFPAY | PROVIDERS: PCP Family Medicine; Visit Provider Internal Medicine | DX: E11.42 Type 2 diabetes mellitus with diabetic polyneuropathy (principal); E89.0 Postprocedural hypothyroidism; E83.51 Hypocalcemia; Z79.4 Long term (current) use of insulin | CPT/HCPCS: 99214 ==

== ENCOUNTER → 2021-10-28 09:48 | Outpatient (BNVA) | payer MEDICARE, MEDICAID, SELFPAY | PROVIDERS: PCP Family Medicine; Visit Provider Internal Medicine | DX: Z95.0 Presence of cardiac pacemaker (principal) ==

== ENCOUNTER → 2021-12-16 12:35 | Outpatient (BNVA) | payer MEDICARE, MEDICAID, SELFPAY | PROVIDERS: PCP Family Medicine; Visit Provider Internal Medicine | DX: E11.42 Type 2 diabetes mellitus with diabetic polyneuropathy (principal); E11.22 Type 2 diabetes mellitus with diabetic chronic kidney disease; N18.30 Chronic kidney disease, stage 3 unspecified; E83.51 Hypocalcemia; E78.5 Hyperlipidemia, unspecified; E89.0 Postprocedural hypothyroidism; Z79.4 Long term (current) use of insulin; Z79.84 Long term (current) use of oral hypoglycemic drugs; Z87.891 Personal history of nicotine dependence | CPT/HCPCS: 36415; 80061; 82306; 82310; 83036; 83970; 84439; 84443; 99214 ==

== ENCOUNTER → 2022-01-01 11:12 | Outpatient (BNVA) | payer MEDICARE, MEDICAID, SELFPAY | PROVIDERS: PCP Family Medicine; Visit Provider Internal Medicine | DX: I11.0 Hypertensive heart disease with heart failure (principal); I50.9 Heart failure, unspecified; E11.42 Type 2 diabetes mellitus with diabetic polyneuropathy; Z79.4 Long term (current) use of insulin; E89.0 Postprocedural hypothyroidism; I48.91 Unspecified atrial fibrillation; E78.5 Hyperlipidemia, unspecified; I42.8 Other cardiomyopathies; Z87.891 Personal history of nicotine dependence | CPT/HCPCS: 99214 ==

== ENCOUNTER → 2022-01-22 12:56 | Outpatient (BNVA) | payer MEDICARE, MEDICAID, SELFPAY | PROVIDERS: PCP Family Medicine; Visit Provider Podiatrist Foot & Ankle Surgery | DX: L84 Corns and callosities (principal); M20.41 Other hammer toe(s) (acquired), right foot; M20.42 Other hammer toe(s) (acquired), left foot; L60.3 Nail dystrophy; E11.21 Type 2 diabetes mellitus with diabetic nephropathy; Z79.4 Long term (current) use of insulin; E11.22 Type 2 diabetes mellitus with diabetic chronic kidney disease; N18.30 Chronic kidney disease, stage 3 unspecified | CPT/HCPCS: 11055; 11721 ==

== ENCOUNTER → 2022-03-19 11:03 | Outpatient (BNVA) | payer MEDICARE, MEDICAID, SELFPAY | PROVIDERS: PCP Family Medicine; Visit Provider Internal Medicine | DX: Z87.891 Personal history of nicotine dependence (principal); E83.51 Hypocalcemia; E11.42 Type 2 diabetes mellitus with diabetic polyneuropathy; Z79.4 Long term (current) use of insulin; E89.0 Postprocedural hypothyroidism; E78.5 Hyperlipidemia, unspecified; E11.22 Type 2 diabetes mellitus with diabetic chronic kidney disease; N18.30 Chronic kidney disease, stage 3 unspecified | CPT/HCPCS: 36415; 80053; 82310; 83036; 83970; 84439; 84443; 99214 ==

== ENCOUNTER → 2022-05-03 14:08 | Outpatient (BNVA) | payer MEDICARE, MEDICAID, SELFPAY | PROVIDERS: PCP Family Medicine; Visit Provider Podiatrist Foot & Ankle Surgery | DX: E11.8 Type 2 diabetes mellitus with unspecified complications (principal); E11.21 Type 2 diabetes mellitus with diabetic nephropathy; L84 Corns and callosities; M20.41 Other hammer toe(s) (acquired), right foot; M20.42 Other hammer toe(s) (acquired), left foot; L60.3 Nail dystrophy; E11.22 Type 2 diabetes mellitus with diabetic chronic kidney disease; N18.30 Chronic kidney disease, stage 3 unspecified; Z79.4 Long term (current) use of insulin | CPT/HCPCS: 11055; 11721 ==

== ENCOUNTER → 2022-05-12 12:16 | Outpatient (BNVA) | payer MEDICARE, MEDICAID, SELFPAY | PROVIDERS: PCP Family Medicine; Visit Provider Nurse Practitioner Family | DX: R30.9 Painful micturition, unspecified (principal); N39.0 Urinary tract infection, site not specified | CPT/HCPCS: 51798; 87086; 99203 ==

== ENCOUNTER → 2022-05-17 09:21 | Outpatient (BNVA) | payer MEDICARE, MEDICAID, SELFPAY | PROVIDERS: PCP Family Medicine; Visit Provider Nurse Practitioner Family | DX: R30.9 Painful micturition, unspecified (principal); N39.0 Urinary tract infection, site not specified | CPT/HCPCS: 81003 ==

== ENCOUNTER → 2022-06-28 13:51 | Outpatient (BNVA) | payer MEDICARE, MEDICAID, SELFPAY | PROVIDERS: PCP Family Medicine; Visit Provider Urology | DX: N30.20 Other chronic cystitis without hematuria (principal); N39.41 Urge incontinence | CPT/HCPCS: 81003; 99213 ==

== ENCOUNTER → 2022-07-12 13:35 | Outpatient (BNVA) | payer MEDICARE, MEDICAID, SELFPAY | PROVIDERS: PCP Family Medicine; Visit Provider Internal Medicine | DX: E11.42 Type 2 diabetes mellitus with diabetic polyneuropathy (principal); E11.22 Type 2 diabetes mellitus with diabetic chronic kidney disease; N18.30 Chronic kidney disease, stage 3 unspecified; E89.0 Postprocedural hypothyroidism; E83.51 Hypocalcemia; E78.5 Hyperlipidemia, unspecified; Z79.4 Long term (current) use of insulin | CPT/HCPCS: 99214 ==

== ENCOUNTER → 2022-07-30 09:45 | Outpatient (BNVA) | payer MEDICARE, MEDICAID, SELFPAY | PROVIDERS: PCP Family Medicine; Visit Provider Internal Medicine Cardiovascular Disease | DX: I48.91 Unspecified atrial fibrillation (principal); E11.22 Type 2 diabetes mellitus with diabetic chronic kidney disease; I13.0 Hypertensive heart and chronic kidney disease with heart failure and stage 1 through stage 4 chronic kidney disease, or unspecified chronic kidney disease; N18.30 Chronic kidney disease, stage 3 unspecified; I50.9 Heart failure, unspecified; Z87.891 Personal history of nicotine dependence; Z79.4 Long term (current) use of insulin; E89.0 Postprocedural hypothyroidism; Z79.01 Long term (current) use of anticoagulants; I42.8 Other cardiomyopathies | CPT/HCPCS: 99213 ==

== ENCOUNTER → 2022-08-03 10:42 | Outpatient (BNVA) | payer MEDICARE, MEDICAID, SELFPAY | PROVIDERS: PCP Family Medicine; Visit Provider Podiatrist Foot & Ankle Surgery | DX: E11.21 Type 2 diabetes mellitus with diabetic nephropathy (principal); L84 Corns and callosities; M20.41 Other hammer toe(s) (acquired), right foot; M20.42 Other hammer toe(s) (acquired), left foot; L60.3 Nail dystrophy; E11.22 Type 2 diabetes mellitus with diabetic chronic kidney disease; N18.30 Chronic kidney disease, stage 3 unspecified; Z79.4 Long term (current) use of insulin | CPT/HCPCS: 11055; 11721 ==

== ENCOUNTER → 2022-10-12 13:01 | Outpatient (BNVA) | payer MEDICARE, MEDICAID, SELFPAY | PROVIDERS: PCP Family Medicine; Visit Provider Internal Medicine | DX: E11.42 Type 2 diabetes mellitus with diabetic polyneuropathy (principal); E11.22 Type 2 diabetes mellitus with diabetic chronic kidney disease; N18.30 Chronic kidney disease, stage 3 unspecified; E78.5 Hyperlipidemia, unspecified; E89.0 Postprocedural hypothyroidism; E83.51 Hypocalcemia; Z79.4 Long term (current) use of insulin; Z79.890 Hormone replacement therapy | CPT/HCPCS: 99214 ==

== ENCOUNTER → 2022-11-09 14:50 | Outpatient (BNVA) | payer MEDICARE, MEDICAID, SELFPAY | PROVIDERS: PCP Family Medicine; Visit Provider Urology | DX: N30.20 Other chronic cystitis without hematuria (principal); N39.41 Urge incontinence; E11.21 Type 2 diabetes mellitus with diabetic nephropathy; L84 Corns and callosities; M20.41 Other hammer toe(s) (acquired), right foot; M20.42 Other hammer toe(s) (acquired), left foot; L60.3 Nail dystrophy; E11.22 Type 2 diabetes mellitus with diabetic chronic kidney disease; N18.30 Chronic kidney disease, stage 3 unspecified; Z79.4 Long term (current) use of insulin | CPT/HCPCS: 11055; 11721; 81003; 99213 ==

== ENCOUNTER → 2022-12-06 12:00 | Outpatient (BNVA) | payer MEDICARE, MEDICAID, SELFPAY | PROVIDERS: PCP Family Medicine; Visit Provider Internal Medicine | DX: Z45.010 Encounter for checking and testing of cardiac pacemaker pulse generator [battery] (principal) | CPT/HCPCS: 93296 ==

== ENCOUNTER → 2022-12-20 10:38 | Outpatient (BNVA) | payer MEDICARE, MEDICAID, SELFPAY | PROVIDERS: PCP Family Medicine; Referring Provider Emergency Medicine; Visit Provider Student in an Organized Health Care Education/Training Program | DX: S52.502A Unspecified fracture of the lower end of left radius, initial encounter for closed fracture (principal); W18.30XA Fall on same level, unspecified, initial encounter; M18.12 Unilateral primary osteoarthritis of first carpometacarpal joint, left hand | CPT/HCPCS: 73110 ==

== ENCOUNTER 2022-12-20 14:02 | Outpatient (CLI) | payer MEDICARE, MEDICAID, SELFPAY | END 2022-12-20 14:03 | disposition home or self-care (01) | LOC: SPT 14:03 | PROVIDERS: PCP Family Medicine; Visit Provider Student in an Organized Health Care Education/Training Program | DX: Z46.89 Encounter for fitting and adjustment of other specified devices (principal); S62.102D Fracture of unspecified carpal bone, left wrist, subsequent encounter for fracture with routine healing; X58.XXXD Exposure to other specified factors, subsequent encounter | CPT/HCPCS: 25600; 97760; 99204; L3984 ==

== ENCOUNTER → 2023-01-05 10:40 | Outpatient (BNVA) | payer MEDICARE, MEDICAID, SELFPAY | PROVIDERS: PCP Family Medicine; Visit Provider Podiatrist Foot & Ankle Surgery | DX: E11.621 Type 2 diabetes mellitus with foot ulcer (principal); E11.22 Type 2 diabetes mellitus with diabetic chronic kidney disease; N18.30 Chronic kidney disease, stage 3 unspecified; Z79.4 Long term (current) use of insulin; L97.523 Non-pressure chronic ulcer of other part of left foot with necrosis of muscle | CPT/HCPCS: 73630; 99214 ==

== ENCOUNTER → 2023-01-12 10:23 | Outpatient (BNVA) | payer MEDICARE, MEDICAID, SELFPAY | PROVIDERS: PCP Family Medicine; Visit Provider Podiatrist Foot & Ankle Surgery | DX: E11.621 Type 2 diabetes mellitus with foot ulcer (principal); Z79.4 Long term (current) use of insulin; L97.523 Non-pressure chronic ulcer of other part of left foot with necrosis of muscle; E11.22 Type 2 diabetes mellitus with diabetic chronic kidney disease; N18.30 Chronic kidney disease, stage 3 unspecified | CPT/HCPCS: 99214 ==

== ENCOUNTER → 2023-01-20 14:57 | Outpatient (BNVA) | payer MEDICARE, MEDICAID, SELFPAY | PROVIDERS: PCP Family Medicine; Visit Provider Podiatrist Foot & Ankle Surgery | DX: Z51.89 Encounter for other specified aftercare (principal); E11.621 Type 2 diabetes mellitus with foot ulcer; Z79.4 Long term (current) use of insulin; L97.523 Non-pressure chronic ulcer of other part of left foot with necrosis of muscle; E11.22 Type 2 diabetes mellitus with diabetic chronic kidney disease; N18.30 Chronic kidney disease, stage 3 unspecified | CPT/HCPCS: 99214 ==

== ENCOUNTER → 2023-02-01 13:38 | Outpatient (BNVA) | payer MEDICARE, MEDICAID, SELFPAY | PROVIDERS: PCP Family Medicine; Visit Provider Internal Medicine | DX: I11.0 Hypertensive heart disease with heart failure (principal); I50.9 Heart failure, unspecified; E11.42 Type 2 diabetes mellitus with diabetic polyneuropathy; Z79.4 Long term (current) use of insulin; E89.0 Postprocedural hypothyroidism; I48.91 Unspecified atrial fibrillation; E78.5 Hyperlipidemia, unspecified; I42.8 Other cardiomyopathies; Z79.01 Long term (current) use of anticoagulants; Z87.891 Personal history of nicotine dependence; Z95.0 Presence of cardiac pacemaker | CPT/HCPCS: 99214 ==

== ENCOUNTER → 2023-02-03 14:03 | Outpatient (BNVA) | payer MEDICARE, MEDICAID, SELFPAY | PROVIDERS: PCP Family Medicine; Visit Provider Student in an Organized Health Care Education/Training Program | DX: S52.502A Unspecified fracture of the lower end of left radius, initial encounter for closed fracture (principal); X58.XXXA Exposure to other specified factors, initial encounter; M18.12 Unilateral primary osteoarthritis of first carpometacarpal joint, left hand; Z46.89 Encounter for fitting and adjustment of other specified devices | CPT/HCPCS: 73110; 97760; 99213; L3908 ==

== ENCOUNTER 2023-02-03 15:00 | Outpatient (CLI) | payer MEDICARE, MEDICAID, SELFPAY | END 2023-02-03 15:01 | disposition home or self-care (01) | LOC: SPT 15:01 | PROVIDERS: PCP Family Medicine; Visit Provider Student in an Organized Health Care Education/Training Program | DX: Z46.89 Encounter for fitting and adjustment of other specified devices (principal); S62.102D Fracture of unspecified carpal bone, left wrist, subsequent encounter for fracture with routine healing; X58.XXXD Exposure to other specified factors, subsequent encounter | CPT/HCPCS: 97760; L3908 ==

== ENCOUNTER → 2023-02-08 14:07 | Outpatient (BNVA) | payer MEDICARE, MEDICAID, SELFPAY | PROVIDERS: PCP Family Medicine; Visit Provider Podiatrist Foot & Ankle Surgery | DX: E11.22 Type 2 diabetes mellitus with diabetic chronic kidney disease (principal); N18.30 Chronic kidney disease, stage 3 unspecified; Z79.4 Long term (current) use of insulin; Z09 Encounter for follow-up examination after completed treatment for conditions other than malignant neoplasm | CPT/HCPCS: 99214 ==

== ENCOUNTER → 2023-02-16 07:56 | Outpatient (BNVA) | payer MEDICARE, MEDICAID, SELFPAY | PROVIDERS: PCP Family Medicine; Visit Provider Internal Medicine | DX: Z45.010 Encounter for checking and testing of cardiac pacemaker pulse generator [battery] (principal) | CPT/HCPCS: 93296 ==

== ENCOUNTER → 2023-03-17 14:59 | Outpatient (BNVA) | payer MEDICARE, MEDICAID, SELFPAY | PROVIDERS: PCP Family Medicine; Visit Provider Student in an Organized Health Care Education/Training Program | DX: S62.102A Fracture of unspecified carpal bone, left wrist, initial encounter for closed fracture; X58.XXXA Exposure to other specified factors, initial encounter | CPT/HCPCS: 73110; 99213 ==

== ENCOUNTER → 2023-04-01 08:22 | Outpatient (BNVA) | payer MEDICARE, MEDICAID, SELFPAY | PROVIDERS: PCP Family Medicine; Visit Provider Internal Medicine | DX: E03.9 Hypothyroidism, unspecified (principal); E11.42 Type 2 diabetes mellitus with diabetic polyneuropathy; Z79.4 Long term (current) use of insulin | CPT/HCPCS: 80053; 80061; 82043; 83036; 84439; 84443; 84480 ==

== ENCOUNTER → 2023-04-11 14:06 | Outpatient (BNVA) | payer MEDICARE, MEDICAID, SELFPAY | PROVIDERS: PCP Family Medicine; Visit Provider Internal Medicine | DX: E11.42 Type 2 diabetes mellitus with diabetic polyneuropathy (principal); Z79.4 Long term (current) use of insulin; E11.22 Type 2 diabetes mellitus with diabetic chronic kidney disease; N18.30 Chronic kidney disease, stage 3 unspecified; E78.5 Hyperlipidemia, unspecified; E89.0 Postprocedural hypothyroidism; E83.51 Hypocalcemia; Z79.890 Hormone replacement therapy | CPT/HCPCS: 99214 ==

== ENCOUNTER → 2023-05-18 14:33 | Outpatient (BNVA) | payer MEDICARE, MEDICAID, SELFPAY | PROVIDERS: PCP Family Medicine; Visit Provider Podiatrist Foot & Ankle Surgery | DX: E11.22 Type 2 diabetes mellitus with diabetic chronic kidney disease (principal); N18.30 Chronic kidney disease, stage 3 unspecified; L60.3 Nail dystrophy; Z79.4 Long term (current) use of insulin | CPT/HCPCS: 11721 ==

== ENCOUNTER 2023-06-26 13:01 | Emergency (ER) | payer MEDICARE, MEDICAID, SELFPAY ==
--- NOTE | 2023-06-26 13:03 | XRR_ITS ---
PROCEDURE INFORMATION: Exam: XR Chest Exam date and time: 06/26/2023 1:28 PM Age: 82 years old Clinical indication: Cough TECHNIQUE: Imaging protocol: Radiologic exam of the chest. Views: 1 view. COMPARISON: CR XR chest 1V portable [id number] 02/21/2020 10:08 PM FINDINGS: Tubes, catheters and devices: cardiac device left anterior chest. Lungs: Unremarkable. No consolidation. Pleural spaces: Unremarkable. No pleural effusion. No pneumothorax. Heart/Mediastinum: Unremarkable. No cardiomegaly. Bones/joints: Metallic arthroplasty right shoulder Other findings: Comparison to prior examination similar findings seen XR/XR chest 1V portable [id number] IMPRESSION: 1. No acute findings. 2. Metallic right shoulder arthroplasty in good position. 3. There is a cardiac device left anterior chest
[2023-06-26 13:05] VITALS: BP 110/66; PULSE 87; TEMP 37.2; O2SAT 93; BMI 34.9
--- NOTE | 2023-06-26 13:13 | ECG_ITS ---
[facility] Test Date: 2023-06-26 Pat Name: Yojana Romano Department: Room: Gender: Female District Administrative Assistant: : 1940 Requested By: Bradley Shea Order Number: [id number] Oriana MD: Alison Gonzalez M.D. Measurements Intervals [place] Rate: 88 P: 0 IA: 0 QRS: 217 QRSD: 130 T: -30 QT: 403 QTc: 490 Interpretive Statements ELECTRONIC VENTRICULAR PACEMAKER ABNORMAL RHYTHM ECG Compared to ECG 02/21/2020 22:26:47 No significant changes Electronically Signed On 06-26-2023 15:29:58 BENCH ASSEMBLER ELECTRICAL by Alison Gonzalez M.D. [id number]
[2023-06-26 13:25] LABS: Basophils # 0.1 10^3/uL (0.0-0.1); Basophils % 0.6 %; Eosinophils # 0.1 10^3/uL (0.0-0.8); Eosinophils % 1.3 %; Hematocrit 41.6 % (36-47); Lymphocytes # 3.2 10^3/uL (0.8-4.8); Lymphocytes % 32.2 %; Mean Corpuscular HGB Conc 30.3 g/dL (30-55); Mean Corpuscular Hemoglobin 23.4 pg (27-33); Mean Corpuscular Volume 77.3 fl (85-98); Mean Platelet Volume 9.6 fL (7.4-10.4); Monocytes # 0.8 10^3/uL (0.2-0.9); Monocytes % 7.9 %; Neutrophils # 5.78 10^3/uL (1.8-7.7); Neutrophils % 57.6 %; Nucleated Red Blood Cells % 0 %; Platelet Count 265 10^3/cmm (157-399); Red Blood Count 5.38 10^6/uL (3.85-5.65); Red Cell Distribution Width 17.5 % (12.1-15.1); White Blood Count 10.03 10^3/uL (3.29-11.43)
[2023-06-26 13:43] LABS: INR 1.33 (0.8-1.2)
--- NOTE | 2023-06-26 13:43 | ED_ITS ---
HPI - Weakness General: Chief complaint: Weakness Stated complaint: WEAKNESS; COUGH Time Seen by Provider: 06/26/23 13:03 History of Present Illness: Patient presents to the ER by ambulance with complaints of feeling bad all over, having increased weakness cough with nausea and vomiting past few days. Patient is on 2 L of oxygen currently and has oxygen at home which she uses on an intermittent basis. Patient has no known sick contacts and patient does not get sick very often per the patient. Review of Systems General: Reports: 10 or more systems reviewed and unremarkable except in HPI and below PFSH ED PFSH: Medical History Anticoagulation adequate with anticoagulant therapy Atrial fibrillation Cardiac resynchronization therapy pacemaker (PASTING MACHINE OPERATOR-P) in place Chronic cystitis Congestive heart failure Diabetes Hyperlipidemia Hypertension Hypothyroidism Non-ischemic cardiomyopathy Sick sinus syndrome Urgency incontinence Surgical History H/O shoulder replacement S/P AV brooklynn ablation Family History Mother , AT AGE 78 Lung disease Aneurysm Father , IN HIS 80'S Heart attack Social History Smoking and tobacco/nicotine status: former use of tobacco/nicotine Alcohol intake: never Substance/Drug Use: never Lives independently: Yes Household members: spouse Marital status: / Current occupational status: retired Physical Exam Const: COMMON NORMALS: no acute distress, average body habitus, patient oriented x3, no limitations, healthy appearing, alert and well nourished HENMT: COMMON NORMALS: normocephalic, atraumatic, hearing grossly normal bilaterally, external ears normal, Normal external nose present, moist oral mucous membranes and oropharynx normal HEAD & SCALP: normocephalic and atraumatic NOSE: Normal external nose present EXTERNAL EAR: Yes external ears normal Eye: COMMON NORMALS: Equal, round and reactive pupils present, EOMs intact bilaterally, conjunctivae normal and no scleral icterus CONJUNCTIVA: Yes conjunctivae normal PUPIL: Yes Equal, round and reactive pupils present Neck/C-Spine: COMMON NORMALS: full ROM, no lymphadenopathy, supple, no meningeal signs, no JVD and Thyroid normal THYROID: Thyroid normal Chest: COMMONS NORMALS: normal inspection of the chest and normal palpation of entire chest wall Resp: COMMON NORMALS: normal respiratory effort, No retractions, No use of accessory muscles and clear to auscultation bilaterally AUSCULTATION: clear to auscultation bilaterally Cardio: COMMON NORMALS: no JVD, regular rate, regular rhythm, S1 normal heart sound present, S2 normal heart sound present, No gallops present (Cardio), No clicks present (Cardio), No murmurs present (Cardio) and No rub (Cardio) RATE: regular rate RHYTHM: regular rhythm HEART SOUNDS: S1 normal heart sound present and S2 normal heart sound present GI: COMMON NORMALS: Normal to inspection, nondistended, normoactive bowel sounds present, Soft to palpation, non-tender, No hepatosplenomegaly present and no masses PALPATION: Yes Soft to palpation and Yes No hepatosplenomegaly present : COMMON NORMALS: Yes no CVA tenderness BLADDER/KIDNEY EXAM: Yes no CVA tenderness Back/Pelvis: COMMON NORMALS: no CVA tenderness Neuro: COMMON NORMALS: patient oriented x3 SENSORIUM/ORIENTATION: Yes alert MENINGEAL SIGNS: Yes no meningeal signs Course Vital Signs: Vital signs: Vital Signs Temperature 99 F 06/26/23 13:05 Pulse Rate 84 06/26/23 14:08 Blood Pressure 111/71 06/26/23 14:08 Pulse Oximetry 95 06/26/23 14:08 Oxygen Delivery Me thod Room Air 06/26/23 13:05 MDM - Weakness Medical Decision Making Patient was worked up with physical exam lab work urine and x-rays. Lab work was essentially benign as well as x-rays showed no acute findings. UA showed mild urinary tract infection. Patient was given Cipro 500 mg p.o. and will be discharged on the same medicine. Patient should follow-up with her PCP in approximately 7 days. Differential Diagnosis Unlikely acute myocardial infarction, anemia, hypoglycemia, hypothyroidism, r habdomyolysis, sepsis or dehydration Medical Records I reviewed the patient's medical records. Lab Data I reviewed the patient's lab results. 06/26/23 13:20 06/26/23 13:20 Radiology Impressions Chest X-Ray 06/26/23 13:03 IMPRESSION: 1. No acute findings. 2. Metallic right shoulder arthroplasty in good position. 3. There is a cardiac device left anterior chest Laboratory Results WBC 10.03 10^3/uL (3.29-11.43) 06/26/23 13:20 RBC 5.38 10^6/uL (3.85-5.65) 06/26/23 13:20 Hgb 12.60 g/dL (11.27-16.99) 06/26/23 13:20 Hct 41.6 % (36-47) 06/26/23 13:20 MCV 77.3 fl (85-98) L 06/26/23 13:20 MCH 23.4 pg (27-33) L 06/26/23 13:20 MCHC 30.3 g/dL (30-55) 06/26/23 13:20 RDW 17.5 % (12.1-15.1) H 06/26/23 13:20 Plt Count 265 10^3/cmm (157-399) 06/26/23 13:20 MPV 9.6 fL (7.4-10.4) 06/26/23 13:20 Neut % (Auto) 57.6 % 06/26/23 13:20 Lymph % (Auto) 32.2 % 06/26/23 13:20 Falls % (Auto) 7.9 % 06/26/23 13:20 Eos % (Auto) 1.3 % 06/26/23 13:20 Baso % (Auto) 0.6 % 06/26/23 13:20 Neut # (Auto) 5.78 10^3/uL (1.8-7.7) 06/26/23 13:20 Lymph # (Auto) 3.2 10^3/uL (0.8-4.8) 06/26/23 13:20 Falls # (Auto) 0.8 10^3/uL (0.2-0.9) 06/26/23 13:20 Eos # (Auto) 0.1 10^3/uL (0.0-0.8) 06/26/23 13:20 Baso # (Auto) 0.1 10^3/uL (0.0-0.1) 06/26/23 13:20 Nucleated RBC % (auto) 0 % 06/26/23 13:20 Nucleated RBCs # 0.0 /100WBC 06/26/23 13:20 PT 17.00 SECONDS (12.1-14.9) H 06/26/23 13:20 INR 1.33 (0.8-1.2) H 06/26/23 13:20 Sodium 134 mmol/L (136-145) L 06/26/23 13:20 Potassium 3.9 mmol/L (3.5-5.1) 06/26/23 13:20 Chloride 95 mmol/L (98-107) L 06/26/23 13:20 Carbon Dioxide 28 mmol/L (22-29) 06/26/23 13:20 Anion Gap 14.9 (5-19) 06/26/23 13:20 BUN 15 mg/dL (8-23) 06/26/23 13:20 Creatinine 0.9 mg/dL (0.5-0.9) 06/26/23 13:20 GFR Calculation Not Reportable 06/26/23 13:20 Glucose 157 mg/dL (65-115) H 06/26/23 13:20 Calculated Osmolality 282 mOsm/kg (285-295) L 06/26/23 13:20 Calcium 8.4 mg/dL (8.5-10.5) L 06/26/23 13:20 Magnesium 1.8 mg/dL (1.7-2.3) 06/26/23 13:20 Total Bilirubin 0.4 mg/dL (0.15-1.2) 06/26/23 13:20 AST 15 U/L (0-32) 06/26/23 13:20 ALT 11 U/L (0-33) 06/26/23 13:20 Alkaline Phosphatase 90 U/L (35-105) 06/26/23 13:20 NT-Pro-B Natriuret Pep 2075 pg/mL (0-450) H 06/26/23 13:20 Total Protein 6.6 g/dL (6.6-8.7) 06/26/23 13:20 Albumin 3.3 g/dL (3.5-5.2) L 06/26/23 13:20 Globulin 3.3 g/dL (1.3-4.6) 06/26/23 13:20 TSH 0.31 uIU/mL (0.27-4.20) 06/26/23 13:20 Urine Color Dark yellow (Yellow) 06/26/23 15:01 Urine Appearance Clear (CLEAR) 06/26/23 15:01 Urine pH 6.5 (5-7) 06/26/23 15:01 Ur Specific Beatty 1.010 (1.005-1.030) 06/26/23 15:01 Urine Protein Trace (Negative) 06/26/23 15:01 Urine Glucose (UA) Norm (Normal) 06/26/23 15:01 Urine Ketones 1+ (Negative) H 06/26/23 15:01 Urine Blood 2+ (Negative) H 06/26/23 15:01 Urine Nitrate Negative (Negative) 06/26/23 15:01 Urine Bilirubin Neg (Negative) 06/26/23 15:01 Urine Urobilinogen Norm mg/dL (Negative) 06/26/23 15:01 Ur Leukocyte Esterase Trace (Negative) H 06/26/23 15:01 Urine RBC Rare /hpf (0-2) 06/26/23 15:01 Urine WBC 5-10 /hpf (0-5) H 06/26/23 15:01 Ur Squamous Epith Cells 0-4 /hpf (0-5) H 06/26/23 15:01 Amorphous Sediment Not Reportable 06/26/23 15:01 Urine Bacteria Trace /hpf (NONE) 06/26/23 15:01 Hyaline Casts 10-15 /lpf H 06/26/23 15:01 All radiology interpretation(s) finalized by discharge EKG Data EKG 1: I personally reviewed and interpreted this EKG as follows: EKG interpretation date: 06/26/23 EKG interpretation time: 13:13 Prior EKG tracings: not available for review Interpretation: EKG shows ventricular rate 88 bpm, QRS duration 130, QTc of 449, electronic ventricular pacemaker Discharge Plan Discharge Patient Disposition: Home Clinical Impression: Urinary tract infection Qualifiers: Urinary tract infection type: acute cystitis Hematuria presence: with hematuria Qualified Code(s): N30.01 - Acute cystitis with hematuria Condition: Stable Prescriptions: New ciprofloxacin HCl 500 mg tablet 500 mg PO Q12H Qty: 20 0RF No Action pantoprazole 40 mg tablet,delayed release (DR/EC) 40 mg PO DAILY levothyroxine 112 mcg tablet 112 mcg PO DAILY clonazepam 0.5 mg tablet 0.5 mg PO DAILY PRN (Reason: Anxiety) cefuroxime axetil 500 mg tablet 500 mg PO BID Qty: 60 6RF (DME) Fast form splint See Rx Instructions .Route .MEDSUPPLY Qty: 1 0RF Rx Instructions: As directed (DME) FreeStyle Sanjay 14 Day Sensor Kit See Rx Instructions .Route Qty: 3 3RF Rx Instructions: test blood sugar (DME) pen needle, diabetic [BD Ultra-Fine Micro Pen Needle] 32 gauge x 1/4 needle See Rx Instructions .ROUTE .MEDSUPPLY Qty: 360 3RF Rx Instructions: As directed acarbose 25 mg tablet 12.5 mg PO TID (DME) Cock Up Splint See Rx Instructions .Route .MEDSUPPLY Qty: 1 0RF Rx Instructions: As directed (DME) pen needle, diabetic 31 gauge x 3/16 needle See Rx Instructions .Route Qty: 100 3RF Rx Instructions: As directed Lasix 40 mg tablet 40 mg PO BID Qty: 180 3RF (DME) FreeStyle Sanjay 2 [place] Misc See Rx Instructions .Route Qty: 1 0RF Rx Instructions: As directed ([facility] [place]) FreeStyle Sanjay 2 Sensor Kit See Rx Instructions .Route Qty: 6 3RF Rx Instructions: As directed Xarelto 20 mg tablet 20 mg PO DAILY Qty: 90 3RF Rx Instructions: must administer with evening meal potassium chloride 10 mEq tablet extended release 10 meq PO BID Qty: 180 3RF insulin glargine [Lantus Solostar U-100 Insulin] 100 unit/mL (3 mL) insulin pen See Rx Instructions .ROUTE .COMPLEX Qty: 21 0RF Dose Instruction: ADMINISTER 22 UNITS UNDER THE SKIN AT NIGHT. MAX DOSE OF 22 UNITS PER DAY Rx Instructions: ADMINISTER 24 UNITS UNDER THE SKIN AT NIGHT. MAX DOSE OF 22 UNITS PER DAY metoprolol succinate 25 mg tablet extended release 24 hr 25 mg PO DAILY Qty: 90 3RF venlafaxine [Effexor XR] 150 mg Capsule,Extended Release 24hr 150 mg PO DAILY allopurinol 100 mg Tablet 100 mg PO DAILY melatonin 10 mg Capsule 10 mg PO DAILY gabapentin 300 mg capsule 300 mg PO TID ondansetron 4 mg tablet,disintegrating 4 mg PO Q6H PRN (Reason: nausea or vomiting) oxycodone 20 mg tablet 20 mg PO TID Januvia 50 mg tablet 50 mg PO DAILY Discharge Orders: Discharge ED (Routine); Ordered 06/26/23 Ordered By: Bradley Shea Referrals: Betty Cook DO [Primary Care Provider] - 1 week Patient Instructions: Urinary Tract Infection in Women (DC) Activity Restrictions/Additional Instructions: Please take all antibiotics as directed. Please drink plenty of fluids. Please follow-up with your family practice physician in the next 7 to 10 days for further evaluation and treatment. Coding Level of Care Code ED [facility] for Isidro Rothman
[2023-06-26 13:59] LABS: Alanine Aminotransferase 11 U/L (0-33); Albumin Level 3.3 g/dL (3.5-5.2); Alkaline Phosphatase 90 U/L (35-105); Anion Gap 14.9 (5-19); Aspartate Amino Transferase 15 U/L (0-32); Blood Urea Nitrogen 15 mg/dL (8-23); Calcium 8.4 mg/dL (8.5-10.5); Carbon Dioxide 28 mmol/L (22-29); Chloride 95 mmol/L (98-107); Creatinine Clr Calc Pharmacy 57.6423; Globulin 3.3 g/dL (1.3-4.6); Glucose 157 mg/dL (65-115); Magnesium 1.8 mg/dL (1.7-2.3); NT Pro B Type Natriuretic Pept 2075 pg/mL (0-450); Osmolality Calculated 282 mOsm/kg (285-295); Potassium 3.9 mmol/L (3.5-5.1); Sodium 134 mmol/L (136-145); Thyroid Stimulating Hormone 0.31 uIU/mL (0.27-4.20); Total Bilirubin 0.4 mg/dL (0.15-1.2); Total Protein 6.6 g/dL (6.6-8.7)
[2023-06-26 14:08] VITALS: BP 111/71; PULSE 84; O2SAT 95
[2023-06-26 15:25] LABS: Add Urine Microscopic? YES; Bilirubin Urine Neg (Negative); Blood Urine 2+ (Negative); Glucose Urine UA Norm (Normal); Ketones Urine 1+ (Negative); Leukocyte Esterase Urine Trace (Negative); Nitrate Urine Negative (Negative); Protein Urine Trace (Negative); Urine Appearance Clear (CLEAR); Urine Color Dark Yellow (Yellow); Urobilinogen Urine Norm (Negative); pH Urine 6.5 (5-7)
[2023-06-26 15:26] LABS: Add Urine Culture? No; Bacteria Urine TRACE /hpf; RBC Urine RARE /hpf (0-2); Squamous Epithelial Cell Urine 0-4 /hpf (0-5)
--- NOTE | 2023-06-26 15:47 | PC.NURSE ---
MD johnsayed pt to take home pain medication-- 20mg of oxycodone.
[2023-06-26] MEDS: ciprofloxacin 500 mg Tablet PO (15:57)
[2023-06-26 16:04] VITALS: BP 133/84; PULSE 89; O2SAT 95
== END 2023-06-26 16:06 | disposition home or self-care (01) ==
PROVIDERS: Emergency Provider Emergency Medicine; PCP Family Medicine
DX: N30.01 Acute cystitis with hematuria (principal); Z79.4 Long term (current) use of insulin; Z87.891 Personal history of nicotine dependence; I11.0 Hypertensive heart disease with heart failure; I50.9 Heart failure, unspecified; E11.9 Type 2 diabetes mellitus without complications; E78.5 Hyperlipidemia, unspecified; I43 Cardiomyopathy in diseases classified elsewhere
CPT/HCPCS: 36415; 71045; 80053; 81001; 83735; 83880; 84443; 85025; 85610; 93005; 99285

== ENCOUNTER → 2023-07-01 10:38 | Outpatient (BNVA) | payer MEDICARE, MEDICAID, SELFPAY | PROVIDERS: PCP Family Medicine; Visit Provider Internal Medicine | DX: Z45.02 Encounter for adjustment and management of automatic implantable cardiac defibrillator (principal) | CPT/HCPCS: 93296 ==

== ENCOUNTER → 2023-07-11 08:58 | Outpatient (BNVA) | payer MEDICARE, MEDICAID, SELFPAY | PROVIDERS: PCP Family Medicine; Visit Provider Internal Medicine | DX: E03.9 Hypothyroidism, unspecified (principal); E11.22 Type 2 diabetes mellitus with diabetic chronic kidney disease; E11.42 Type 2 diabetes mellitus with diabetic polyneuropathy; E78.5 Hyperlipidemia, unspecified; E83.51 Hypocalcemia; N18.30 Chronic kidney disease, stage 3 unspecified; Z79.4 Long term (current) use of insulin; E11.9 Type 2 diabetes mellitus without complications | CPT/HCPCS: 80053; 80061; 82043; 83036; 84439; 84443 ==